=== PATIENT | female | born 1980 | race African-American/Black ===

== ENCOUNTER 2019-11-06 22:08 | Emergency (ER) | payer OTHER ==
[~2019-11-06] VITALS: Ht 154.9 cm; Wt 74.0 kg
[2019-11-06] MEDS ORDERED: CEFAZOLIN 1000MG PREMIX 50 ML IV ONE (23:00)
[2019-11-06] MEDS ORDERED: MORPHINE SULFATE 4 MG/ML CPJ (NOT FOR IM USE) IV STA (23:00)
[2019-11-06] MEDS ORDERED: SODIUM CHLORIDE 0.9% 1,000 ML IV ONE (23:00)
[2019-11-06] MEDS ORDERED: TETANUS, DIPHTHERIA, PERTUSSIS VAC/PF 0.5ML (>7YR OLD) IM ONE (23:00)
[2019-11-06] MEDS ORDERED: ONDANSETRON HCL 4MG/2ML INJ IV STA (23:00)
[2019-11-06 23:47] LABS: HEMATOCRIT. 29.4 % (36.0-48.0); HEMOGLOBIN. 9.7 g/dL (12.0-16.0); MEAN CORPUSCULAR HEMOGLOBIN 29.1 pg (28.0-32.0); MEAN CORPUSCULAR VOLUME 88.4 fL (81.0-99.0); PLATELET 390 x1000/uL (130-400); RED BLOOD CELL COUNT 3.33 mill/uL (4.2-5.4); RED CELL DISTRIBUTION WIDTH 19.4 % (11.6-14.6)
[2019-11-06 23:58] LABS: CHLORIDE 107 mEq/L (98-107)
[2019-11-07 00:24] LABS: PLATELET ESTIMATE NORMAL
[2019-11-07 01:14] VITALS: BP 103/58
[2019-11-07] MEDS ORDERED: IOHEXOL-300 100 ML BOTTLE ONE (05:53)
== END 2019-11-07 01:28 | disposition short-term general hospital (02) ==
LOC: ER 22:08
DX: S36.116A Major laceration of liver, initial encounter (principal); S37.812A Contusion of adrenal gland, initial encounter; S22.32XA Fracture of one rib, left side, initial encounter for closed fracture; S00.81XA Abrasion of other part of head, initial encounter; Z90.49 Acquired absence of other specified parts of digestive tract; V43.62XA Car passenger injured in collision with other type car in traffic accident, initial encounter; Y93.89 Activity, other specified; Y92.488 Other paved roadways as the place of occurrence of the external cause
CPT/HCPCS: 36415; 70450; 70486; 71045; 72125; 73090; 74177; 80048; 85025; 90471; 90715; 93005; 96365; 96375; 99291; J0690; J2270; J2405; J7030; Q9967